=== PATIENT | female | born 1965 | race Caucasian/White ===

== ENCOUNTER → 2017-12-31 | Outpatient (CLI) | payer BC | LOC: CIMAGING 15:52 | PROVIDERS: ATTEND Physician Assistant | DX: D25.1 Intramural leiomyoma of uterus (principal); D25.0 Submucous leiomyoma of uterus; N83.202 Unspecified ovarian cyst, left side; N85.2 Hypertrophy of uterus | CPT/HCPCS: 76856-PO ==

== ENCOUNTER → 2018-07-30 | Outpatient (CLI) | payer BC | LOC: BMCIMAGING 15:39 | PROVIDERS: ATTEND Physician Assistant | DX: M17.11 Unilateral primary osteoarthritis, right knee (principal) ==